=== PATIENT | male | born 1950 | race Caucasian/White ===

== ENCOUNTER 2024-03-21 09:45 | Emergency (ER) | payer MEDICARE, OTHER ==
[2024-03-21] MEDS ORDERED: DEXAMETHASONE 10 MG/ML VIAL ONE (11:03)
[2024-03-21] MEDS ORDERED: diphenhydrAMINE ELIXIR 25 MG/10 ML UDC PO ONE (11:03)
--- NOTE | 2024-03-21 16:05 | ED Physician Documentation ---
History of Present Illness - Stated complaint Stated Complaint: RT PINKY SWELLING - History obtained from History obtained from: Patient - Additonal information Additional information: Stung on the right index finger by a bee yesterday and has pain and swelling in that area without diffuse rash, throat swelling, nor shortness of breath. PD ED PE NORMAL - Vitals Vital signs reviewed: Yes - General General: Alert and oriented X 3, No acute distress - Extremities Extremities: Other (The right pinky finger is red and swollen and there is a blood blister along the lateral side. Full range of motion.) - Neuro Neuro: Alert and oriented X 3, Normal speech PD Medical Decision Making - ED course ED course: We discussed whether or not to open up the blood blister and he did not wanted it opened up. He was treated here with dexamethasone and Benadryl. Departure - Departure Disposition: 01 Home, Self Care Clinical Impression: Bee sting reaction Qualifiers: Encounter type: initial encounter Injury intent: accidental or unintentional Qualified Code(s): T63.441A - Toxic effect of venom of bees, accidental (unintentional), initial encounter Condition: Stable Comments: See downtime charting for discharge instructions
[2024-03-21 16:19] VITALS: BP 130/78; O2SAT 98
== END 2024-03-21 16:27 | disposition home or self-care (01) ==
LOC: ED 09:45
DX: T63.441A Toxic effect of venom of bees, accidental (unintentional), initial encounter (principal)
CPT/HCPCS: 99283; A9270